=== PATIENT | male | born 1955 | race Caucasian/White ===

== ENCOUNTER 2019-05-16 15:41 | Emergency (ER) | payer SELFPAY ==
[~2019-05-16] VITALS: Ht 170.2 cm; Wt 91.0 kg
[2019-05-16] MEDS ORDERED: ALBUTEROL (0.083%) 2.5MG/3ML NEB HHN STA (20:33)
[2019-05-16] MEDS ORDERED: METHYLPREDNISOLONE SOD SUCC 125 MG/2 ML VIAL IV STA (20:33)
[2019-05-16] MEDS ORDERED: DIPHENHYDRAMINE 50MG/ML VIAL IV ONE (20:45)
[2019-05-16] MEDS ORDERED: FAMOTIDINE 20MG/2ML VIAL IV ONE (20:45)
[2019-05-16 20:55] LABS: BASOPHILS % 0.2 % (0.0-2.0); EOSINOPHILS % 0.6 % (0.0-5.0); LYMPHOCYTES % 20.3 % (20.0-50.0); MEAN CORPUSCULAR HEMOGLOBIN 32.1 pg (28.0-32.0); MEAN CORPUSCULAR VOLUME 92.3 fL (80.0-94.0); MEAN PLATELET VOLUME 10.5 fl (7.4-10.4); MONOCYTES % 9.9 % (2.0-8.0); PLATELET 172 x1000/uL (130-400); RED BLOOD CELL COUNT 4.98 mill/uL (4.7-6.1)
[2019-05-16 20:59] LABS: CHLORIDE 106 mEq/L (98-107)
[2019-05-16 21:04] LABS: ETHANOL BLOOD < 10 mg/dL
[2019-05-16 21:19] LABS: CLARITY URINE CLEAR (CLEAR); COLOR URINE YELLOW (YELLOW); KETONES URINE NEGATIVE (NEGATIVE); LEUKOCYTE ESTERASE URINE NEGATIVE (NEGATIVE); NITRITE URINE NEGATIVE (NEGATIVE); OCCULT BLOOD URINE NEGATIVE (NEGATIVE); PROTEIN URINE NEGATIVE (NEGATIVE); SPECIFIC GRAVITY URINE 1.007 (1.005-1.030); UROBILINOGEN URINE 0.2 E.U./dL (0.2-1.0)
[2019-05-16 21:28] LABS: *AMPHETAMINES SCREEN URINE NEGATIVE (NEGATIVE)
[2019-05-16 21:29] LABS: *BARBITURATES SCREEN URINE NEGATIVE (NEGATIVE); *BENZODIAZEPINES SCREEN URINE NEGATIVE (NEGATIVE); *COCAINE SCREEN URINE NEGATIVE (NEGATIVE); METHADONE URINE SCREEN NEGATIVE (NEGATIVE); OPIATES URINE SCREEN NEGATIVE (NEGATIVE); PHENCYCLIDINE URINE SCREEN NEGATIVE (NEGATIVE)
[2019-05-16 21:31] LABS: CANNABINOID URINE SCREEN NEGATIVE (NEGATIVE)
[2019-05-16 22:45] VITALS: BP 121/79
== END 2019-05-16 23:19 | disposition home or self-care (01) ==
LOC: ER 15:41 → CANBEDREQ 23:27
DX: L50.0 Allergic urticaria (principal); R07.89 Other chest pain; T78.49XA Other allergy, initial encounter; X58.XXXA Exposure to other specified factors, initial encounter
CPT/HCPCS: 36415; 71045; 80053; 80305; 80320; 81003; 83605; 83690; 83880; 84484; 85025; 87040; 87086; 93005; 94640; 96374; 96375; 99284; J1200; J2930; J3490; J7611; Z7610; G0480

== ENCOUNTER 2019-05-18 00:19 | Emergency (ER) | payer SELFPAY ==
[~2019-05-18] VITALS: Ht 167.6 cm; Wt 82.0 kg
[2019-05-18] MEDS ORDERED: DIPHENHYDRAMINE 50MG CAPSULE PO ONE (01:15)
[2019-05-18] MEDS ORDERED: EPINEPHRINE 1:1000 1 MG/ML AMP IM ONE (01:15)
[2019-05-18] MEDS ORDERED: FAMOTIDINE 20MG TABLET PO ONE (01:15)
[2019-05-18 04:45] VITALS: BP 121/60
== END 2019-05-18 04:47 | disposition home or self-care (01) ==
LOC: ER 00:19
DX: T78.49XA Other allergy, initial encounter (principal); X58.XXXA Exposure to other specified factors, initial encounter; E78.00 Pure hypercholesterolemia, unspecified; I10 Essential (primary) hypertension
CPT/HCPCS: 93005; 96372; 99291; J3490; Q0163